=== PATIENT | female | born 1965 | race Caucasian/White ===

== ENCOUNTER → 2017-10-18 | Outpatient (CLI) | payer BC ==
[~2017-10-18] MED LIST: BOTOX100 UNITS SQ; CYCLOBENZAPRINE10 MG PO; DILAUDID2 MG PO; ESTRADIOL1 EAC4 TP; FIORICET,ESG1 TABLET PO; FLEXERIL5 MG PO; FLONASE16 G1 BOTH NARES; IRON325 MG PO; LYRICA75 MG PO; ONE DAILY FOR1 EAC3 PO; ORENCIA250 MG/10 IV; PREDNISONE2.5 MG PO; PRILOSEC40 MG PO; PROAIR HFA8.5 GM IH; PULMICORT FLE180 MCG IH; TOPAMAX100 MG PO; TOPROL XL50 MG PO; ULTRAM50 MG PO; VISTARIL25 MG PO; VITAMIN E400 UNIT PO; WARFARIN SODIU2.5 MG PO
== END | disposition home or self-care (01) ==
LOC: NUC 06:34
DX: R11.0 Nausea (principal)
CPT/HCPCS: 78264; A9541